=== PATIENT | male | born 1975 | race Caucasian/White ===

== ENCOUNTER 2016-12-21 08:32 | Day surgery (SDC) | payer OTHER ==
[2016-12-16 18:09] VITALS: BMI 35.9
[2016-12-21] MEDS ORDERED: PROPOFOL 20 ML ONE ×2 (09:10)
[2016-12-21] MEDS ORDERED: MIDAZOLAM HCL 2 MG/2 ML SINGLE DOSE VIAL ONE (09:34)
[2016-12-21] MEDS ORDERED: BUPIVACAINE HCL 0.25% 125 MG/50 ML VIAL ONE (09:50)
[2016-12-21] MEDS ORDERED: GUM MASTIC/STORAX/MSAL/ALCOHOL 1 DRP DROPSBTL MC ONE (10:20)
[2016-12-21] MEDS ORDERED: BUPIVACAINE HCL/PF 0.25% (2.5MG/ML) 10 ML VIAL IJ ONE (10:22)
[2016-12-21 11:40] VITALS: TEMP 98.4
[2016-12-21 13:31] VITALS: BP 113/73; PULSE 84
--- NOTE | 2016-12-21 20:59 | OP ---
DATE OF OPERATION: 12/21/2016 PREOPERATIVE DIAGNOSIS: Right carpal tunnel syndrome. POSTOPERATIVE DIAGNOSIS: Right carpal tunnel syndrome. OPERATIVE PROCEDURE: Right endoscopic carpal tunnel release. SURGEON: Jay Moody MD ANESTHESIA: General. COMPLICATIONS: None. ESTIMATED BLOOD LOSS: Minimal. INDICATIONS FOR PROCEDURE: The patient is a 41-year-old male with the above finding, indicated for operative treatment. Risks, benefits, alternatives were discussed with patient at length. Proper informed consent was obtained. PROCEDURE: After proper identification of patient and correct operative site, patient was brought to operating room, placed supine on the operating table, prominences well padded. General anesthesia was provided by the anesthesiologist, adequate for procedure. Right upper extremity was prepped and draped in usual sterile fashion. A well-padded tourniquet was placed over sterile prep. Esmarch bandage to exsanguinate right upper extremity. Tourniquet was inflated to 250 mmHg. A transverse incision was made over proximal wrist crease, ulnar to the palmaris longus tendon, to protect the palmar cutaneous nerve. The antebrachial fascia was divided and Micro[employer]ire endoscopic carpal tunnel release system was used. The device was inserted in the distal edge of the transcarpal ligament, which was positively identified visually. At all times throughout the procedure, excellent visualization was achieved and at no time was any soft tissue allowed to interpose between the blade and the undersurface of the transverse carpal ligament. The transverse carpal ligament was then divided and the distal 4 cm of antebrachial fascia were also divided under direct visualization technique. An elevator was run over the median nerve and there were no tight bands. The wound was irrigated with saline and repaired with a 5-0 Monocryl suture. Steri-Strips and sterile dressings were applied. The patient was reversed from anesthesia and brought to the recovery room in stable condition. She tolerated the procedure well. JAY MOODY M.D. [id number]
== END 2016-12-21 12:20 | disposition home or self-care (01) ==
LOC: FASU 08:32
PROVIDERS: ATTEND Orthopaedic Surgery Hand Surgery
PROC: 01N54ZZ Release Median Nerve, Percutaneous Endoscopic Approach (ICD-10-PCS; 2016-12-21)
PROC: 01N50ZZ Release Median Nerve, Open Approach (ICD-10-PCS; principal; 2016-12-21 09:45)
DX: G56.01 Carpal tunnel syndrome, right upper limb (principal)
CPT/HCPCS: 94760

== ENCOUNTER 2017-01-18 06:06 | Day surgery (SDC) | payer OTHER ==
[2017-01-10 10:44] VITALS: BMI 35.9
[2017-01-18] MEDS ORDERED: PROPOFOL 20 ML ONE ×5 (07:13→07:14)
[2017-01-18] MEDS ORDERED: SUCCINYLCHOLINE CHLORIDE 200 MG/10 ML VIAL ONE (07:13)
[2017-01-18] MEDS ORDERED: MIDAZOLAM HCL 2 MG/2 ML SINGLE DOSE VIAL ONE (07:13)
[2017-01-18] MEDS ORDERED: DESFLURANE GAS 240 ML BOTTLE IH ONE (07:58)
[2017-01-18] MEDS ORDERED: BUPIVACAINE HCL 0.25% 125 MG/50 ML VIAL INF ONE (08:00)
[2017-01-18] MEDS ORDERED: GUM MASTIC/STORAX/MSAL/ALCOHOL 1 DRP DROPSBTL MC ONE (08:01)
[2017-01-18] MEDS ORDERED: LACTATED RINGERS SOLUTION 1,000 ML IV SCH (09:30)
[2017-01-18] MEDS ORDERED: ONDANSETRON 4 MG/2 ML VIAL IVPUSH PRN (10:01)
[2017-01-18] MEDS ORDERED: oxyCODONE HCL 5 MG TABLET PO PRN ×2 (10:01→10:02)
[2017-01-18 10:42] VITALS: BP 110/74; PULSE 80; TEMP 98.2
--- NOTE | 2017-01-18 20:31 | OP ---
DATE OF OPERATION: 01/18/2017 PREOPERATIVE DIAGNOSIS: Left carpal tunnel syndrome. POSTOPERATIVE DIAGNOSIS: Left carpal tunnel syndrome. OPERATIVE PROCEDURE: Left endoscopic carpal tunnel release. SURGEON: Jay Henderson MD ANESTHESIA: General. COMPLICATIONS: None. ESTIMATED BLOOD LOSS: Minimal. INDICATIONS FOR PROCEDURE: The patient is a 41-year-old male with the above finding, indicated for operative treatment. Risks, benefits, alternatives were discussed with patient at length and proper informed consent was obtained. PROCEDURE: After proper identification of patient and correct operative site, patient was brought to the operating room, placed supine on the operating table, all prominences well padded. General anesthesia was provided by the anesthesiologist, adequate for procedure. The left upper extremity was prepped and draped in the usual sterile fashion. A well-padded tourniquet was placed over the sterile prep. Esmarch bandage to exsanguinate the left upper extremity and the tourniquet was inflated to 250 mmHg. A transverse incision was made over proximal wrist crease ulnar to the palmaris longus tendon. Incision was taken sharply through the skin with blunt and dissection of the subcutaneous tissues. The antebrachial fascia was divided and the carpal canal was entered with an elevator and soft tissue was freed from the undersurface of the transverse carpal ligament. MicroAire endoscopic carpal tunnel release system was then used after preparing the canal. The system was inserted, with excellent visualization achieved at all times throughout the procedure. The blade was inserted into the distal aspect of the transverse carpal ligament, which was positively identified. The blade was then deployed. At all times throughout the procedure, there was no soft tissue allowed interpose between the blade and the undersurface of the transverse carpal ligament. After the blade was deployed, the transverse carpal ligament was released in tis entirety. Using a mini open approach, the distal 4 cm of antebrachial fascia were also divided, providing complete release of the median nerve at the wrist. The wound was irrigated with saline and repaired with a 4-0 Monocryl suture. Sterile dressings were applied. The patient was reversed from anesthesia and brought to recovery room in stable condition. He tolerated procedure well. Liliana NOLAN/[id number]
== END 2017-01-18 10:00 | disposition home or self-care (01) ==
LOC: FASU 06:06
PROVIDERS: ATTEND Orthopaedic Surgery Hand Surgery
PROC: 01N50ZZ Release Median Nerve, Open Approach (ICD-10-PCS; principal; 2017-01-18 07:30)
DX: G56.02 Carpal tunnel syndrome, left upper limb (principal)
CPT/HCPCS: 94760